=== PATIENT | male | born 1945 | race Two or more races ===

== ENCOUNTER → 2018-01-20 | Outpatient (CLI) | payer MEDICARE, OTHER ==
[~2018-01-20] MED LIST: ATOR20TA22 PO; IOPAMIDOL 76% 100 ML INFUS BTL 100 ML ONE; NS 0.9% 25 ML BAG 75 ML ONE
--- NOTE | 2018-01-20 13:01 | RADIOLOGY IMAGING REPORT ---
FACILITY: [facility] - [place] PATIENT NAME: Edgar Headley : 1945 MR: [id number] V: [id number] EXAM DATE: ORDERING PHYSICIAN: TIGRE PADGETT TECHNOLOGIST: Location: [facility] [place] Patient: Edgar Headley : 1945 Visit/Account:[id number] Date of Sevice: 01/20/2018 EXAMINATION: CTA Neck with intravenous contrast HISTORY: Carotid stenosis. TECHNIQUE: Overlapping thin sections were obtained during a bolus of IV contrast from the aortic ar ch through the [place]. Reconstruction of the source data set includes multiplanar 2D in the sagittal and coronal planes, and 3D coronal thin slab MIP series. Night Clerk Auditor images have been st ored on PACS. Stenosis of the internal carotid arteries are calculated using NASCET criteria. One of the following dose optimization techniques was utilized in the performance of this exam: Autom ated exposure control; adjustment of the mA and/or kV according to the patient's size; or use of an i terative reconstruction technique. Specific details can be referenced in the facility's radiology C T exam operational policy. CONTRAST: 100 mL of IV [id number] COMPARISON: Carotid ultrasound dated 01/01/2017. FINDINGS: Angiographic findings: Aortic arch and great vessels: Mild calcified plaque with no stenosis or aneurysm. Right CCA / ICA: Calcified plaque at the origin of the internal carotid artery with no significant stenosis. Tortuous cervical ICA. Mild carotid siphon calcification without stenosis. Left CCA / ICA: Mild noncalcified plaque in the mid distal common carotid with no significant steno sis. Mild calcified plaque in the proximal cervical ICA with no significant stenosis. Tortuous cervic al ICA. Mild carotid siphon calcification without stenosis. Vertebro-basilar: Negative. Additional non-angiographic findings: Multilevel degenerative disc disease and facet hypertrophy in the cervical spine. Mild mucosal thickening in the paranasal sinuses. IMPRESSION: 1. Scattered calcified and noncalcified plaque with no significant stenosis. 2. Multilevel degenerative disc disease and facet hypertrophy in the cervical spine. 3. Mild mucosal thickening in the paranasal sinuses. Report Dictated By: Jim Martinez MD at 01/20/2018 12:48 PM Report E-Signed By: Jim Martinez MD at 01/20/2018 12:58 PM WSN:[id number]
== END ==
LOC: CT 07:04
PROVIDERS: ATTEND Internal Medicine
DX: I70.0 Atherosclerosis of aorta (principal); I65.23 Occlusion and stenosis of bilateral carotid arteries
CPT/HCPCS: 36415; 70498; 82565; Q9967